=== PATIENT | female | born 1990 | race Caucasian/White ===

== ENCOUNTER 2016-06-02 04:30 | Inpatient (IN) | payer OTHER ==
[~2016-06-02] VITALS: Ht 160 cm; Wt 83.0 kg
[~2016-06-02 04:30] MED LIST: PRENATALS
[2016-06-02 09:30] VITALS: BP 110/63; RESP 20
[2016-06-02 10:05] VITALS: BP 110/63; PULSE 84; RESP 18; Ht 160 cm; Wt 83.0 kg
[2016-06-02] MEDS ORDERED: traMADol-APAP 37.5-325 1 TAB PO PRN (11:30)
[2016-06-02] MEDS ORDERED: BISACODYL (EC) 5 MG TAB PO PRN (13:00)
[2016-06-02] MEDS ORDERED: DOCUSATE SODIUM 100 MG CAP PO PRN (13:00)
[2016-06-02] MEDS ORDERED: ACETAMINOPHEN 650 MG SUPP PR PRN (13:00)
[2016-06-02] MEDS ORDERED: NACL 0.9% 3 ML SYG IV SCH (13:00)
[2016-06-02] MEDS ORDERED: ONDANSETRON 4 MG TAB PO PRN (13:00)
[2016-06-02] MEDS: D5W-0.45 NACL + KCL 20 MEQ 1,000 ML IV SCH ×2 (13:13→22:57)
[2016-06-02 13:58] LABS: HEMATOCRIT 31.5 % (37.0-47.0); HEMOGLOBIN 9.4 g/dl (12.0-16.0)
[2016-06-02] MEDS ORDERED: BARIUM SULF 2% 450 ML BTL (BERRY SMOOTHIE) PO ONE (14:00)
--- NOTE | 2016-06-02 14:49 | HP ---
DATE OF ADMISSION: 06/02/2016 PARKING ENFORCEMENT OFFICER: Marketing Research Analyst. CHIEF COMPLAINT: Generalized weakness and shortness of breath. HISTORY OF PRESENT ILLNESS: This is a 25-year-old female with past medical history of anemia and C- section and irregular menstruation, who was seen and evaluated at [facility] on 05/12 secondary to having generalized weakness and shortness of breath. The patient was diagnosed with anemia and blood transfusion was recommended, although she refused the transfusion and went inna e. On 06/01/2016, the patient returned to [facility] with the same symptoms and she was fo und to have urinary tract infection. Her hemoglobin was found to be 8.9, hematocrit 28.7. The pat ient was typed and screened and transfused 1 unit of packed red blood cell. The patient secondary t o insurance purposes was transferred to [facility] as per request of the insurance company, and patient was cleared as per medical standpoint by the ER physician to be transferred to [facility]. Upon arrival to [facility], the patient's temperature was 97.6, puls e 81, respirations 20, blood pressure 110/65, oxygen saturation 96%. The patient continued to compl ain of generalized weakness. She denies any headache, dizziness, lightheadedness. No change in vis ual acuity, diplopia, photophobia. No abdominal pain. No nausea or vomiting. No change in the col or of stool. No heavy menstrual bleeding. No dysuria, hematuria, urgency, incontinence. The patie nt also has been complaining of having a 40-pound weight loss in the last year and having decrease i n appetite. PAST MEDICAL/SURGICAL HISTORY: 1. Anemia. 2. . MEDICATIONS: Ferrous sulfate. SOCIAL HISTORY: Negative x3 for smoking, alcohol, illicit drugs. She lives with her fiance and 2 o f her kids. FAMILY HISTORY: No history of cancer, diabetes mellitus. REVIEW OF SYSTEMS: As above per HPI, otherwise 12 review of systems has been found to be negative. PHYSICAL EXAMINATION: VITAL SIGNS: Temperature 97.3, pulse 84, respirations 18, blood pressure 110/63, oxygen saturation 96% in room air. GENERAL APPEARANCE: The patient is lying in bed comfortably without any distress. She is awake, al ert, oriented. She is able to answer my questions properly. Body habitus is mildly overweight with BMI of 32.4. EYES AND ENT: Conjunctivae pale. Lids normal. Extraocular normal. Hearing normal. Oral mucosa m oist. NECK: Supple. Trachea is midline. No lymphadenopathy. RESPIRATORY: Effort is normal. Clear to auscultate bilaterally. CARDIOVASCULAR: Normal S1, S2. Regular rhythm and rate. No murmur, no bruits, no edema. Peripher al pulses and radial pulses palpable. Capillary refill is normal. CHEST: Normal expansion of thorax during inspiration. GASTROINTESTINAL: Abdomen is soft, nontender, not distended. Bowel sounds present. No guarding, n o rebound. GENITOURINARY: Deferred. MUSCULOSKELETAL: Upper and lower extremity normal, full range of motion. Strength 5/5 in both uppe r and lower extremities. NEUROLOGIC: Cranial nerves II through XII are grossly intact. PSYCHIATRIC: Normal judgment and insight. Alert and oriented x3. Mood and affect is normal. LABORATORY DATA: WBC 10.5, hemoglobin 7.3, hematocrit 24.1, MCV 57.7, MCH 17.3, RDW 17.9. PT 13, I NR 1.2, PTT 30. Glucose 106. Sodium 139, potassium 3.9, chloride 104, bicarbonate 27, BUN 10, crea tinine 0.64, glucose greater than 90, calcium 9.3, magnesium 2.1. LFTs all within normal limits. U rinalysis positive for large leukocyte esterase, WBC 5 to 10, bacteria Few. The patient was typed and crossed and transfused 2 units of packed red blood cells and her hemoglobi n increased to 8.9, hematocrit 28.7, MCV 65.1. ASSESSMENT AND PLAN 1. Microcytic anemia, source is unknown. We will obtain photocomposition keyboard operator. We will follow up [facility]. The patient has been typed and screened and transfused 2 units of packed red blood cells at [facility]. We will follow hemoglobin and hematocrit q.8h. x3. Follow up iron panel a nd treat accordingly. 2. Generalized weakness. This is likely secondary to #1. Place the patient on IV fluid. 3. Urinary tract infection. Place the patient on ciprofloxacin. 4. Weight loss. This could be secondary to patient post- and post-. We will obtain a CT abdomen and pelvis with IV contrast to rule out any mass. Gastroenterology has been consulted. 5. For deep venous thrombosis prophylaxis, on sequential compression devices. 6. For gastrointestinal prophylaxis, place the patient on proton pump inhibitor. 7. We will continue to monitor the patient closely. Further recommendations, management and treatm ent as per clinical course. Dictated By: KYM MORRIS MD PN/NTS Conf#: [id number] DID#: [id number]
[2016-06-02] MEDS: HYDROCODONE/APAP (5/325) TAB PO PRN (14:57)
[2016-06-02 18:05] LABS: CREATININE 0.59 mg/dl (0.44-1.00)
--- NOTE | 2016-06-02 19:48 | CONS ---
Date/Time of Note Date/Time of Note DATE: 06/02/16 TIME: 19:42 Assessment/Plan Assessment/Plan Additional Assessment/Plan Acute anemia Evaluate GI bleed versus chronic iron deficiency vs other etiology Stool OB, if positive strongly recommend EGD Monitor H&H every 8 hours, transfuse 2 units for hemoglobin less than 7.[address] abdomen Continue PPI twice daily EGD with Dr. Crane tomorrow, pt advised of R/B/A to procedure and provide informed consent to proceed Colonoscopy with Dr. Crane tomorrow, pt advised of R/B/A to procedure and provide informed consent to proceed Bowel Prep Unintentional weight loss Endoscopic evaluation tomorrow CT abdomen in process Irregular menstruation Length of menstruation up to 7 days Recommend METAL SPRAY OPERATOR evaluation Further recommendations depend on clinical course Patient seen in collaboration with Dr. Crane Consultation Date/Type/Reason Admit Date/Time Jun 02, 2016 at 09:46 Type of Consultation: Gastroenterology Reason for Consultation Weight loss and anemia Hx of Present Illness Ms.Esmeralda Starr is a 25-year-old female who was transferred to [facility] for further evaluation of anemia and weakness. Patient states she has been feeling very weak, tired, dizzy for several weeks. Patient reports menstrual cycle last up to 7 days. Patient denies abdominal pain, nausea, vomiting, fever, chills, sick contacts, travel outside the , previous episode. At bedside patient denies abdominal pain; however, she does report an unintentional 30 pound weight loss over the last 3 months and abdominal epigastric pain with eating. Patient denies family history of colon cancer. Patient denies previous endoscopic evaluation of complaints. At bedside patient consents to EGD and colonoscopy. Patient advised of risks/benefits/ alternatives to procedure and she provides informed consent to proceed. Social History Alcohol Use: rarely Smoking Status: Never smoker Exam/Review of Systems Vital Signs Vitals Vital Signs Date Time Temp Pulse Resp B/P Pulse Ox O2 Delivery O2 Flow Rate FiO2 06/02/16 10:05 Nasal Cannula 2.0 06/02/16 10:05 97.6 84 18 110/63 96 Exam Constitutional: alert, oriented, well developed Psych: nl mood/affect Head: normocephalic Eyes: EOMI, nl conjunctiva, nl lids ENMT: nl external ears & nose, nl lips & teeth, nl nasal mucosa & septum Respiratory: clear to auscultation, normal air movement Cardiovascular: regular rate and rhythm Gastrointestinal: soft, non-tender Musculoskeletal: nl extremities to inspection Neurological: RECREATIONAL DIRECTOR II-XII intact Results Result Diagram: 06/02/16 1340 06/02/16 1340 Results 24 hrs Laboratory Tests Test 06/02/16 13:40 06/02/16 14:45 Hemoglobin 9.4 L Hematocrit 31.5 L Blood Urea Nitrogen 8 Creatinine 0.59 Urine Test NEGATIVE Medications Medications Current Medications Potassium Chloride/Dextrose/ Sod Cl (D5-1/2ns + KCl 20 Meq) 1,000 ml @ 70 mls/ hr [id number] IV Last administered on 06/02/16 13:13; Admin Dose 70 MLS/HR; Start 06/02/16 at 13:00 Ondansetron HCl (Zofran Tab) 4 mg Q6H PRN PO NAUSEA AND/OR VOMITING; Start at 13:00 Acetaminophen (Tylenol Tab) 650 mg Q6H PRN PO PAIN LEVEL 1-3 OR FEVER; Start at 13:00 Acetaminophen (Tylenol Supp) 650 mg Q6H PRN [place] PAIN LEVEL 1-3 OR FEVER; Start 06/02/16 at 13:00 Acetaminophen/ Hydrocodone Bitart ([place] (5/325)) 1 tab Q6H PRN PO MODERATE PAIN LEVEL 4-6 Last administered on 06/02/16 14:57; Admin Dose 1 TAB; Start at 13:00 Docusate Sodium (Colace) 100 mg Q12H PRN PO CONSTIPATION; Start 06/02/16 at 13: 00 Bisacodyl (Dulcolax) 5 mg DAILY PRN PO CONSTIPATION; Start 06/02/16 at 13:00 Famotidine 20 mg 20 mg Q12 PO ; Start 06/02/16 at 21:00 Ciprofloxacin/ Dextrose (Cipro Ivpb) 200 ml @ 200 mls/hr Q12 IVPB ; Start 06/02 at 21:00 DELMY CHUA Jun 02, 2016 19:48
[2016-06-02 19:59] LABS: HEMATOCRIT 29.6 % (37.0-47.0); HEMOGLOBIN 8.7 g/dl (12.0-16.0)
[2016-06-02 20:05] VITALS: BP 115/75; RESP 20
[2016-06-02] MEDS: CIPROFLOXACIN 400MG/D5W 200 ML IVPB SCH (20:25)
[2016-06-02] MEDS: FAMOTIDINE 20 MG TAB PO SCH (20:28)
[2016-06-02] MEDS ORDERED: MAGNESIUM CITRATE 300 ML BTL PO ONE (21:00)
[2016-06-02] MEDS ORDERED: BISACODYL (EC) 5 MG TAB PO ONE (21:00)
[2016-06-02 22:11] VITALS: BP 108/70; PULSE 71; RESP 20
[2016-06-02] MEDS ORDERED: POLYETHYLENE GLYCOL 3350 119 GM POWDER PO ONE (23:00)
[2016-06-03] VITALS (11 sets, daily range): BP systolic 99–112; BP diastolic 54–68; PULSE 64–76; RESP 16–26
[2016-06-03 00:58] LABS: HEMATOCRIT 29.9 % (37.0-47.0); HEMOGLOBIN 8.7 g/dl (12.0-16.0)
[2016-06-03 04:56] LABS: ADD SCAN DIFF NO
[2016-06-03] MEDS ORDERED: BISACODYL (EC) 5 MG TAB PO ONE (05:00)
[2016-06-03] MEDS ORDERED: POLYETHYLENE GLYCOL 3350 119 GM POWDER PO ONE (05:00)
[2016-06-03 05:12] LABS: POTASSIUM 4.1 mmol/L (3.5-5.1)
[2016-06-03 05:15] LABS: CREATININE 0.64 mg/dl (0.44-1.00)
[2016-06-03 05:16] LABS: CALCIUM 9.2 mg/dl (8.4-10.2); MAGNESIUM 2.2 mg/dl (1.7-2.5)
[2016-06-03 05:25] LABS: ABNORMAL IP MESSAGE 1; HEMATOCRIT 31.1 % (37.0-47.0); MEAN CORPUSCULAR HGB CONC 28.9 g/dl (32.0-37.0); MEAN CORPUSCULAR VOLUME 69.1 fl (82.0-101.0); PLATELET COUNT 343 10^3/UL (140-415); RED CELL DISTRIBUTION WIDTH 24.2 % (11.5-14.5); WHITE BLOOD COUNT 8.3 10^3/ul (4.8-10.8)
[2016-06-03 05:29] LABS: IRON 23 ug/dl (35-150)
[2016-06-03 05:39] LABS: TOTAL IRON BINDING CAPACITY 435 ug/dl (241-421)
[2016-06-03 05:49] LABS: FERRITIN 8.5 ng/ml (6.2-137.0)
[2016-06-03] MEDS: FAMOTIDINE 20 MG TAB PO SCH ×2 (08:41→21:07)
[2016-06-03] MEDS: ACETAMINOPHEN 325 MG TAB PO PRN ×2 (08:41→22:28)
[2016-06-03] MEDS: CIPROFLOXACIN 400MG/D5W 200 ML IVPB SCH ×2 (08:41→21:09)
[2016-06-03] MEDS ORDERED: ONDANSETRON 4 MG INJ IV PRN (09:00)
[2016-06-03] MEDS ORDERED: IOHEXOL 300MG/ML 150 ML BTL ONE (10:05)
[2016-06-03 10:09] LABS: BASOPHIL # 0.1 10^3/ul (0.0-0.1); EOSINOPHILS # 0.2 10^3/ul (0.0-0.5); LYMPHOCYTES # 2.2 10^3/ul (0.8-2.9); MONOCYTE # 0.3 10^3/ul (0.3-0.9); NEUTROPHIL # 5.4 10^3/ul (1.6-7.5)
[2016-06-03 10:10] LABS: POLYCHROMASIA 1+; SPHEROCYTES 1+
--- NOTE | 2016-06-03 10:54 | PN ---
Date/Time of Note Date/Time of Note DATE: 06/03/16 TIME: 10:50 Assessment/Plan VTE Prophylaxis VTE Prophylaxis Intervention: SCD's Lines/Catheters IV Catheter Type (from [facility]): Peripheral IV Urinary Cath still in place: No Assessment/Plan Assessment/Plan Iron deficiency anemia, rule out GI bleeding UTI Iron saturation low Plan: GI on case plan for endoscopy will give IV iron x 5 days will follow up Subjective 24 Hr Interval Summary Free Text/Dictation Hb 8.7, S/p GI consult, plan for colonoscopy, getting CT abdomen Exam/Review of Systems Vital Signs Vitals Vital Signs Date Time Temp Pulse Resp B/P Pulse Ox O2 Delivery O2 Flow Rate FiO2 06/03/16 08:52 97.9 73 17 112/60 100 06/02/16 22:11 Nasal Cannula 06/02/16 20:20 2.0 Intake and Output 06/02/16 06/02/16 06/03/16 15:00 23:00 07:00 Intake Total 880 ml 2100 ml Output Total 900 ml 1850 ml Balance -20 ml 250 ml Exam alert,awake MUUL< EOMI supple, no JVD Clear BS S1 S2 RRR no murmur soft, NT no edema Results Result Diagram: 06/03/16 0436 06/03/16 0436 Results 24 hrs Laboratory Tests Test 06/02/16 13:40 06/02/16 14:45 06/02/16 19:18 06/03/16 00:50 Hemoglobin 9.4 L 8.7 L 8.7 L Hematocrit 31.5 L 29.6 L 29.9 L Blood Urea Nitrogen 8 Creatinine 0.59 Urine Test NEGATIVE Test 06/03/16 04:36 White Blood Count 8.3 Red Blood Count 4.50 Hemoglobin 9.0 L Hematocrit 31.1 L Mean Corpuscular Volume 69.1 L Mean Corpuscular Hemoglobin 20.0 L Mean Corpuscular Hemoglobin Concent 28.9 L Red Cell Distribution Width 24.2 H Platelet Count 343 Mean Platelet Volume Neutrophils % 65.0 Lymphocytes % 27.0 Monocytes % 4.0 Eosinophils % 3.0 Basophils % 1.0 Neutrophils # 5.4 Lymphocytes # 2.2 Monocytes # 0.3 Eosinophils # 0.2 Basophils # 0.1 Polychromasia 1+ Spherocytes 1+ Sodium Level 143 Potassium Level 4.1 Chloride Level 104 Carbon Dioxide Level 28 Anion Gap 15 Blood Urea Nitrogen 6 L Creatinine 0.64 Glucose Level 102 Calcium Level 9.2 Magnesium Level 2.2 Iron Level 23 L Total Iron Binding Capacity 435 H Percent Iron Saturation 5 L Ferritin 8.5 Medications Medications Current Medications Potassium Chloride/Dextrose/ Sod Cl (D5-1/2ns + KCl 20 Meq) 1,000 ml @ 70 mls/ hr [id number] IV Last administered on 06/02/16 22:57; Admin Dose 70 MLS/HR; Start 06/02/16 at 13:00 Acetaminophen (Tylenol Tab) 650 mg Q6H PRN PO PAIN LEVEL 1-3 OR FEVER Last administered on 06/03/16 08:41; Admin Dose 650 MG; Start 06/02/16 at 13:00 Acetaminophen (Tylenol Supp) [address] PAIN LEVEL 1-3 OR FEVER; Start 06/02/16 at 13:00 Acetaminophen/ Hydrocodone Bitart ([place] (5/325)) 1 tab Q6H PRN PO MODERATE PAIN LEVEL 4-6 Last administered on 06/02/16 14:57; Admin Dose 1 TAB; Start at 13:00 Docusate Sodium (Colace) 100 mg Q12H PRN PO CONSTIPATION; Start 06/02/16 at 13: 00 Bisacodyl (Dulcolax) 5 mg DAILY PRN PO CONSTIPATION; Start 06/02/16 at 13:00 Famotidine 20 mg 20 mg Q12 PO Last administered on 06/03/16 08:41; Admin Dose 20 MG; Start 06/02/16 at 21:00 Ciprofloxacin/ Dextrose (Cipro Ivpb) 200 ml @ 200 mls/hr Q12 IVPB Last administered on 06/03/16 08:41; Admin Dose 200 MLS/HR; Start 06/02/16 at 21:00 Ondansetron HCl (Zofran Inj) 4 mg Q4H PRN IV NAUSEA AND/OR VOMITING Last administered on 06/03/16 08:48; Admin Dose 4 MG; Start 06/03/16 at 09:00 YEIMI POND MD Jun 03, 2016 10:53
--- NOTE | 2016-06-03 11:29 | RADRPT ---
PROCEDURE: CT Abdomen and pelvis with contrast. CLINICAL INDICATION: abdominal pain TECHNIQUE: CT scan of the abdomen and pelvis with contrast was performed on a multidetector high-r esolution CT scan. The patient was scanned following the uncomplicated intravenous administration o f 100 ml Omnipaque-300. Coronal and sagittal reformatted images were obtained from the axial source images. Standard CT of the abdomen pelvis with contrast protocols were performed. The total exam CTDI equals 17.19 mGy and the total exam DLP equals 1048.24 mGy-cm. One or more of the following dose reduction techniques were used: - Automated exposure control. - Adjustment of the mA and/or kV according to patient size. Use of iterative reconstruction technique. COMPARISON: None. FINDINGS: The kidneys are normal in size without hydronephrosis or intra renal masses bilaterally. No calcifi ed urinary calculi. The inner bladder appears unremarkable. The uterus is retroverted endometrium device is present. There is central low density within uterus likely menstrual changes. No definite adnexal masses are demonstrated. The appendix is unremarkable. There are diffuse fluid filled loops of small and large bowel which a re not dilated and are otherwise unremarkable. There is fluid and air within the stomach which othe rwise appears unremarkable. There is trace free fluid in the right cul-de-sac and along the right uterus. No other abdominal or pelvic free fluid. No localized fluid collection to suggest abscess. Negative for free air. The liver spleen pancreas and adrenal glands are normal size configuration without focal lesions. T he gallbladder is unremarkable without evidence of biliary ductal dilation. The aorta and its branches are unremarkable. There is no evidence of ventral abdominal wall or ingu inal hernias. Minimal dependent lung atelectasis. Lung bases are otherwise unremarkable. There is right L5 spondylolysis defect. There is exaggerated lumbar lordosis. The osseous structures are o therwise unremarkable. IMPRESSION: 1. Trace fluid in the right cul-de-sac and along the right uterus. Negative for intra-abdominal ab scess or free air. 2. Diffuse fluid filled nondistended loops of small large bowel as well as fluid in the stomach. T his is nonspecific. A gastroenteritis cannot be excluded. 3. No evidence of calcified urinary calculi or obstructive uropathy. 4. Unremarkable appendix. RPTAT:AAJJ Teresa Willson, Physician Date Time Electronically viewed and signed by Teresa Willson Physician on 06/03/2016 11:28 /
[2016-06-03] MEDS: SOD FERRIC GLUC COMPLX 125 MG in SOD CHLORIDE 0.9% 100 ML IVPB SCH (13:34)
[2016-06-03] MEDS: HYDROCODONE/APAP (5/325) TAB PO PRN (13:40)
[2016-06-03] MEDS: D5W-0.45 NACL + KCL 20 MEQ 1,000 ML IV SCH ×2 (17:10→23:54)
[2016-06-03] MEDS ORDERED: PROPOFOL 20 ML ONE (17:42)
[2016-06-03] MEDS ORDERED: MIDAZOLAM 1 MG/ML 2 ML INJ ONE ×2 (17:42)
[2016-06-03] MEDS ORDERED: FENTAnyl 50 MCG/ML VIAL ONE (17:42)
[2016-06-04] MEDS: CIPROFLOXACIN 400MG/D5W 200 ML IVPB SCH ×2 (08:07→21:05)
[2016-06-04] MEDS: FAMOTIDINE 20 MG TAB PO SCH ×2 (08:07→21:05)
[2016-06-04 08:17] VITALS: BP 108/55; RESP 16
[2016-06-04] MEDS: HYDROCODONE/APAP (5/325) TAB PO PRN ×3 (09:26→23:54)
[2016-06-04] MEDS: SOD FERRIC GLUC COMPLX 125 MG in SOD CHLORIDE 0.9% 100 ML IVPB SCH (11:24)
--- NOTE | 2016-06-04 12:04 | PN ---
Date/Time of Note Date/Time of Note DATE: 06/04/16 TIME: 12:01 Assessment/Plan VTE Prophylaxis VTE Prophylaxis Intervention: SCD's Lines/Catheters IV Catheter Type (from Nrs): Peripheral IV Urinary Cath still in place: No Assessment/Plan Assessment/Plan Iron deficiency symptomatic anemia, severe iron deficiency,s/p EGD and colonoscopy yesterday UTI Iron saturation low Plan: s/p mild gastritis, Bx done, s/p Colonoscopy showed normal mucosa to caecum, moderate size internal hemorrhoids on IV abx for UTI will give IV iron x 5 days due to severe iron deficiency will follow up Subjective 24 Hr Interval Summary Free Text/Dictation s/p mild gastritis, Bx done, s/p Colonoscopy showed normal mucosa to caecum, moderate size internal hemorrhoids Exam/Review of Systems Vital Signs Vitals Vital Signs Date Time Temp Pulse Resp B/P Pulse Ox O2 Delivery O2 Flow Rate FiO2 06/04/16 08:17 97.6 73 16 108/55 100 06/03/16 19:16 Room Air 06/03/16 18:36 2.0 Intake and Output 06/03/16 06/03/16 06/04/16 15:00 23:00 07:00 Intake Total 200 ml 1250 ml 750 ml Balance 200 ml 1250 ml 750 ml Exam alert,awake MULU< EOMI supple, no JVD Clear BS S1 S2 RRR no murmur soft, NT no edema Results Result Diagram: 06/03/166 06/03/16 0436 Medications Medications Current Medications Potassium Chloride/Dextrose/ Sod Cl (D5-1/2ns + KCl 20 Meq) 1,000 ml @ 70 mls/ hr [id number] IV Last administered on 06/03/16 23:54; Admin Dose 70 MLS/HR; Start 06/02/16 at 13:00 Acetaminophen (Tylenol Tab) 650 mg Q6H PRN PO PAIN LEVEL 1-3 OR FEVER Last administered on 06/03/16 22:28; Admin Dose 650 MG; Start 06/02/16 at 13:00 Acetaminophen (Tylenol Supp) 650 mg Q6H PRN [place] PAIN LEVEL 1-3 OR FEVER; Start 06/02/16 at 13:00 Acetaminophen/ Hydrocodone Bitart ([place] (5/325)) 1 tab Q6H PRN PO MODERATE PAIN LEVEL 4-6 Last administered on 06/04/16 09:26; Admin Dose 1 TAB; Start at 13:00 Docusate Sodium (Colace) 100 mg Q12H PRN PO CONSTIPATION; Start 06/02/16 at 13: 00 Bisacodyl (Dulcolax) 5 mg DAILY PRN PO CONSTIPATION; Start 06/02/16 at 13:00 Famotidine 20 mg 20 mg Q12 PO Last administered on 06/04/16 08:07; Admin Dose 20 MG; Start 06/02/16 at 21:00 Ciprofloxacin/ Dextrose (Cipro Ivpb) 200 ml @ 200 mls/hr Q12 IVPB Last administered on 06/04/16 08:07; Admin Dose 200 MLS/HR; Start 06/02/16 at 21:00 Ondansetron HCl 4 mg 4 mg Q4H PRN IV NAUSEA AND/OR VOMITING Last administered on 06/03/16 08:48; Admin Dose 4 MG; Start 06/03/16 at 09:00 Ferric Sodium Gluconate Complex/ Sodium Chloride (Ferrlecit/NS) 110 ml @ 110 mls/hr Q24H IVPB Last administered on 06/04/16 11:24; Admin Dose 110 MLS/HR; Start 06/03/16 at 12:00; Stop 06/07/16 at 12:59 YEIMI POND MD Jun 04, 2016 12:04
--- NOTE | 2016-06-04 12:26 | PDOCDIS ---
Discharge Instructions CONDITION Patient Condition: Good HOME CARE INSTRUCTIONS: Special Diet: regular diet ACTIVITY: Activity Restrictions: Slowly Increase Activity Rest between Activity Avoid heavy lifting Avoid Heavy Housework FOLLOW UP/APPOINTMENTS Appointments follow up with her own PMD through HMO insurance in 1-2 week after discharge YEIMI POND MD Jun 04, 2016 12:26
[2016-06-04] MEDS ORDERED: FAMO20TA18 PO (12:27)
[2016-06-04] MEDS ORDERED: FER325 PO (12:27)
[2016-06-04] MEDS ORDERED: DOCU-144 PO (12:27)
--- NOTE | 2016-06-04 15:35 | CONS ---
Date/Time of Note Date/Time of Note DATE: 06/04/16 TIME: 15:34 Assessment/Plan Assessment/Plan Chief Complaint/Hosp Course Ms.Esmeralda Strar is a 25-year-old female who was transferred to [facility] for further evaluation of anemia and weakness. Patient states she has been feeling very weak, tired, dizzy for several weeks. Patient reports menstrual cycle last up to 7 days. Patient denies abdominal pain, nausea, vomiting, fever, chills, sick contacts, travel outside the , previous episode. At bedside patient denies abdominal pain; however, she does report an unintentional 30 pound weight loss over the last 3 months and abdominal epigastric pain with eating. Patient denies family history of colon cancer. Patient denies previous endoscopic evaluation of complaints. At bedside patient consents to EGD and colonoscopy. Patient advised of risks/benefits/ alternatives to procedure and she provides informed consent to proceed. Problems: Additional Assessment/Plan Acute anemia Evaluate GI bleed versus chronic iron deficiency vs other etiology Monitor H&H every 8 hours, transfuse 2 units for hemoglobin less than 7.[address] abdomen: 1. Trace fluid in the right cul-de-sac and along the right uterus. Negative for intra-abdominal abscess or free air. 2. Diffuse fluid filled nondistended loops of small large bowel as well as fluid in the stomach. This is nonspecific. A gastroenteritis cannot be excluded. 3. No evidence of calcified urinary calculi or obstructive uropathy. 4. Unremarkable appendix. Continue PPI twice daily EGD 06-03-16: 1. Normal mucosa to cecum 2. moderate size internal hemorrhoids Colonoscopy 06-03-16: 1. Mild gastritis. rule out H. pylori biopsies taken Unintentional weight loss Endoscopic evaluation tomorrow CT abdomen: 1. Trace fluid in the right cul-de-sac and along the right uterus. Negative for intra-abdominal abscess or free air. 2. Diffuse fluid filled nondistended loops of small large bowel as well as fluid in the stomach. This is nonspecific. A gastroenteritis cannot be excluded. 3. No evidence of calcified urinary calculi or obstructive uropathy. 4. Unremarkable appendix. Continue PPI twice daily Irregular menstruation Length of menstruation up to 7 days Recommend HARP REGULATOR evaluation Further recommendations depend on clinical course Patient seen in collaboration with Dr. Crane Consultation Date/Type/Reason Admit Date/Time Jun 02, 2016 at 09:46 Initial Consult Date Type of Consultation: Gastroenterology 24 HR Interval Summary Free Text/Dictation Tolerating diet Colonoscopy and EGD unremarkable for active bleeding Advised patient to continue iron supplementation Exam/Review of Systems Vital Signs Vitals Vital Signs Date Time Temp Pulse Resp B/P Pulse Ox O2 Delivery O2 Flow Rate FiO2 06/04/16 08:17 97.6 73 16 108/55 100 06/03/16 19:16 Room Air 06/03/16 18:36 2.0 Intake and Output 06/03/16 06/03/16 06/04/16 15:00 23:00 07:00 Intake Total 200 ml 1250 ml 750 ml Balance 200 ml 1250 ml 750 ml Exam Constitutional: alert, oriented, well developed Psych: nl mood/affect Head: normocephalic Eyes: EOMI, nl conjunctiva, nl lids ENMT: nl external ears & nose, nl lips & teeth, nl nasal mucosa & septum Respiratory: clear to auscultation, normal air movement Cardiovascular: regular rate and rhythm Gastrointestinal: soft, non-tender Musculoskeletal: nl extremities to inspection Neurological: CEMENT MIXER II-XII intact Results Result Diagram: 06/03/166 06/03/16 0436 Medications Medications Current Medications Acetaminophen (Tylenol Tab) 650 mg Q6H PRN PO PAIN LEVEL 1-3 OR FEVER Last administered on 06/03/16 22:28; Admin Dose 650 MG; Start 06/02/16 at 13:00 Acetaminophen (Tylenol Supp) 650 mg Q6H PRN [place] PAIN LEVEL 1-3 OR FEVER; Start 06/02/16 at 13:00 Acetaminophen/ Hydrocodone Bitart ([place] (5/325)) 1 tab Q6H PRN PO MODERATE PAIN LEVEL 4-6 Last administered on 06/04/16 09:26; Admin Dose 1 TAB; Start at 13:00 Docusate Sodium (Colace) 100 mg Q12H PRN PO CONSTIPATION; Start 06/02/16 at 13: 00 Bisacodyl (Dulcolax) 5 mg DAILY PRN PO CONSTIPATION; Start 06/02/16 at 13:00 Famotidine 20 mg 20 mg Q12 PO Last administered on 06/04/16 08:07; Admin Dose 20 MG; Start 06/02/16 at 21:00 Ciprofloxacin/ Dextrose (Cipro Ivpb) 200 ml @ 200 mls/hr Q12 IVPB Last administered on 06/04/16 08:07; Admin Dose 200 MLS/HR; Start 06/02/16 at 21:00 Ondansetron HCl 4 mg 4 mg Q4H PRN IV NAUSEA AND/OR VOMITING Last administered on 06/03/16 08:48; Admin Dose 4 MG; Start 06/03/16 at 09:00 Ferric Sodium Gluconate Complex/ Sodium Chloride (Ferrlecit/NS) 110 ml @ 110 mls/hr Q24H IVPB Last administered on 06/04/16 11:24; Admin Dose 110 MLS/HR; Start 06/03/16 at 12:00; Stop 06/07/16 at 12:59 DELMY CHUA Jun 04, 2016 15:35
[2016-06-04 20:06] VITALS: BP 111/70; RESP 17
[2016-06-05] MEDS: ACETAMINOPHEN 325 MG TAB PO PRN (08:21)
[2016-06-05] MEDS: FAMOTIDINE 20 MG TAB PO SCH (08:21)
[2016-06-05 08:42] VITALS: BP 98/52; RESP 16
[2016-06-05] MEDS: CIPROFLOXACIN 400MG/D5W 200 ML IVPB SCH (09:17)
[2016-06-05] MEDS: HYDROCODONE/APAP (5/325) TAB PO PRN (10:06)
--- NOTE | 2016-06-05 11:01 | PN ---
Date/Time of Note Date/Time of Note DATE: 06/05/16 TIME: 11:00 Assessment/Plan VTE Prophylaxis VTE Prophylaxis Intervention: SCD's Lines/Catheters IV Catheter Type (from Nrs): [place] [facility] Urinary Cath still in place: No Assessment/Plan Assessment/Plan Iron deficiency symptomatic anemia, severe iron deficiency,s/p EGD and colonoscopy yesterday UTI Iron saturation low Plan: s/p mild gastritis, Bx done, s/p Colonoscopy showed normal mucosa to caecum, moderate size internal hemorrhoids on IV abx for UTI will give IV iron x 5 days due to severe iron deficiency will follow up Subjective 24 Hr Interval Summary Free Text/Dictation Bp stable, afebrile, Exam/Review of Systems Vital Signs Vitals Vital Signs Date Time Temp Pulse Resp B/P Pulse Ox O2 Delivery O2 Flow Rate FiO2 06/05/16 08:42 97.4 65 16 98/52 99 06/03/16 19:16 Room Air 06/03/16 18:36 2.0 Intake and Output 06/04/16 06/04/16 06/05/16 15:00 23:00 07:00 Intake Total 660 ml 700 ml Output Total 400 ml Balance 660 ml 300 ml Exam alert,awake MULU< EOMI supple, no JVD Clear BS S1 S2 RRR no murmur soft, NT no edema Results Result Diagram: 06/03/16 0436 06/03/16 0436 Medications Medications Current Medications Acetaminophen (Tylenol Tab) 650 mg Q6H PRN PO PAIN LEVEL 1-3 OR FEVER Last administered on 06/05/16 08:21; Admin Dose 650 MG; Start 06/02/16 at 13:00 Acetaminophen (Tylenol Supp) 650 mg Q6H PRN [place] PAIN LEVEL 1-3 OR FEVER; Start 06/02/16 at 13:00 Acetaminophen/ Hydrocodone Bitart ([place] (5/325)) 1 tab Q6H PRN PO MODERATE PAIN LEVEL 4-6 Last administered on 06/05/16 10:06; Admin Dose 1 TAB; Start at 13:00 Docusate Sodium (Colace) 100 mg Q12H PRN PO CONSTIPATION; Start 06/02/16 at 13: 00 Bisacodyl (Dulcolax) 5 mg DAILY PRN PO CONSTIPATION; Start 06/02/16 at 13:00 Famotidine 20 mg 20 mg Q12 PO Last administered on 06/05/16 08:21; Admin Dose 20 MG; Start 06/02/16 at 21:00 Ciprofloxacin/ Dextrose (Cipro Ivpb) 200 ml @ 200 mls/hr Q12 IVPB Last administered on 06/05/16 09:17; Admin Dose 200 MLS/HR; Start 06/02/16 at 21:00 Ondansetron HCl 4 mg 4 mg Q4H PRN IV NAUSEA AND/OR VOMITING Last administered on 06/03/16 08:48; Admin Dose 4 MG; Start 06/03/16 at 09:00 Ferric Sodium Gluconate Complex/ Sodium Chloride (Ferrlecit/NS) 110 ml @ 110 mls/hr Q24H IVPB Last administered on 06/04/16 11:24; Admin Dose 110 MLS/HR; Start 06/03/16 at 12:00; Stop 06/07/16 at 12:59 YEIMI POND MD Jun 05, 2016 11:01
[2016-06-05] MEDS: SOD FERRIC GLUC COMPLX 125 MG in SOD CHLORIDE 0.9% 100 ML IVPB SCH (11:55)
--- NOTE | 2016-06-05 22:30 | DS ---
DATE OF ADMISSION: 06/02/2016 DATE OF DISCHARGE: 06/05/2016 FINAL DISCHARGE DIAGNOSES: 1. Iron deficiency, symptomatic severe anemia, status post esophagogastroduodenoscopy and colonosco py. 2. Urinary tract infection. 3. Severe iron deficiency with iron saturation low. CONSULTATIONS DONE DURING THIS HOSPITALIZATION: GI consult, Dr. Crane. PROCEDURES PERFORMED DURING THIS HOSPITALIZATION: The patient had EGD done which revealed mild quan ritis. Biopsy was done. The patient also had a colonoscopy done, which showed a normal mucosa to t he cecum, moderate size internal hemorrhoids. HOSPITAL COURSE: This is a 25-year-old female with a past medical history of anxiety, depression wh o presented with a complaint of generalized weakness, fatigue, and was complaining of shortness of b reath. She was noted to have severe iron deficiency anemia. She was admitted by hospitalist indy rivas. She was evaluated by GI, Dr. Crane, and had EGD done, which revealed mild gastritis and the bio psy was done to rule out Helicobacter pylori infection. The patient also had a colonoscopy done, wh ich revealed normal mucosa up to the cecum with a moderate size internal hemorrhoids. She tolerated the procedure very well. She was noted to have iron deficiency with iron saturation of 7. She was given IV iron x5 days while being in the hospital, and she was discharged home with p.o. prescripti on for ferrous sulfate. DISPOSITION: To home. DISCHARGE CONDITION: Stable and improved compared to admission. DISCHARGE ACTIVITIES: As tolerated, slowly resume to the normal baseline activity. DISCHARGE DIET: Regular diet. DISCHARGE MEDICATIONS: 1. She is given prescription of ferrous sulfate. 2. And Colace upon discharge. DISCHARGE FOLLOWUP PLANS AND INSTRUCTIONS: 1. The patient is to follow up with her own primary care doctor through her HMO insurance 1 to 2 we eks after discharge. 2. The patient is advised about the followup instructions. She understood and verbalized understan rodrigo. Dictated By: YEIMI POND MD, KP/NTS Conf#: [id number] DID#: [id number] CC: EARLINE AGUIRRE MD;*EndCC*
--- NOTE | 2016-06-07 04:03 | GILP ---
DATE OF PROCEDURE: PROCEDURE: Colonoscopy to see the cecum. PREMEDICATION: Monitored anesthesia care by anesthesiologist. SURGEON: Stephanie Crane MD. INSTRUMENT USED: Olympus colonoscope. PREPARATION: Adequate. TECHNIQUE: After informed consent, with the patient/relatives understanding the procedure, its indic ations potential risks and complications, including but not limited to: allergic reaction, bleeding, perforation, infection, missed lesions and after all pertinent questions were answered to the patie nt's satisfaction, the patient/relatives signed the witnessed informed consent. Following this, premedication was administered slowly IV push by under careful cardiovascular and re spiratory monitoring with pulse oximetry, automatic blood pressure and scout sniper. Once the sedativ e effect was achieved, the patient was placed in the left lateral decubitus position, digital rectal examination was performed. The colonoscope was then introduced and advanced under visual control th roughout all segments of the colon including: the rectum, sigmoid, descending colon, splenic flexure , transverse colon, hepatic flexure, ascending colon and finally reaching the cecum which was clearl y identified by transillumination, finger indentation and the ileocecal valve. Careful examination o f the mucosa of the lower gastrointestinal tract both on insertion as well as withdrawal of the inst rument disclosed the following findings: Rectal Examination: No evidence of perirectal disease, no masses. Colonic Mucosa: The colonic mucosa is entirely unremarkable throughout. The ileocecal valve was cl early identified and appears unremarkable. On withdrawal of instrument, no additional abnormalities were noted with the exception of moderate size internal hemorrhoids. The instrument was then withdrawn, the patient tolerated the procedure well and was transferred out of the Endoscopy Suite awake and in good condition to continue recovery under observation. IMPRESSION: 1. Normal colonic mucosa to cecum. 2. Moderate size internal hemorrhoids. PLAN: The patient will be continued on present regimen. Diet will be advanced as tolerated[facility] Dictated By: STEPHANIE CRANE MS/ASHLEIGH Conf#: [id number] DID#: [id number]
--- NOTE | 2016-06-07 04:05 | GILP ---
DATE OF PROCEDURE: 06/03/2016 PROCEDURE: Esophagogastroduodenoscopy with biopsies. BRIEF HISTORY AND INDICATIONS: The patient is being evaluated for unexplained anemia. PREMEDICATION: Monitored anesthesia care by anesthesiologist. SURGEON: Stephanie Crane MD. INSTRUMENT USED: Olympus panendoscope. TECHNIQUE: After informed consent, with the patient/relatives understanding the procedure, its indic ations, potential risks and complications, including but not limited to: allergic reaction, bleeding , perforation or infection, and after all pertinent questions were answered to the patients satisfac tion, the patient/relatives signed witnessed informed consent. Following this, premedication was administered slowly IV push under careful cardiovascular and respi ratory monitoring with pulse oximetry, automatic blood pressure and bus monitor. Once the sedative effect was achieved the patient was place in the left lateral decubitus, the panen doscope was introduced and advanced under visual control. Careful examination of the upper gastrointestinal tract, both on insertion as well as withdrawal of the instrument disclosed the following findings: ESOPHAGUS: The mucosa of the entire esophagus appears within normal limits. There is no evidence of esophagitis, varices, neoplasm or stricture. No hiatal hernia identified. STOMACH: Upon entrance to the stomach, air was insufflated, the gastric lehman distended normally. There is erythema and edema of the mucosa of a mild degree. Biopsies were obtained to rule out H. p ylori infection. PYLORUS: The pylorus appears patent and within normal limits, with no evidence of gastric outlet ob struction. DUODENUM: The duodenal mucosa was carefully examined in the duodenal bulb as well as the second por tion of the duodenum and appears unremarkable with no evidence of duodenitis, ulcer or neoplasm. The instrument was then withdrawn, the patient tolerated the procedure well and was transfer out of the endoscopy suite awake, and in good condition to continue recovery under observation IMPRESSION: Mild gastritis of questionable clinical significance, rule out Helicobacter pylori infe ction, biopsies obtained. PLAN: Pathology will be reviewed as soon as available. Dictated By: STEPHANIE CRANE MS/ASHLEIGH Conf#: [id number] DID#: [id number]
== END 2016-06-05 14:54 | disposition home or self-care (01) | DRG 812 ==
LOC: PP2 09:46
PROVIDERS: ADMIT Family Medicine; ATTEND Family Medicine
PROC: 0DJD8ZZ Inspection of Lower Intestinal Tract, Via Natural or Artificial Opening Endoscopic (ICD-10-PCS; principal; 2016-06-03 21:30)
PROC: 0DB68ZX Excision of Stomach, Via Natural or Artificial Opening Endoscopic, Diagnostic (ICD-10-PCS; 2016-06-03 21:30)
DX: D50.9 Iron deficiency anemia, unspecified (principal); N39.0 Urinary tract infection, site not specified; K29.70 Gastritis, unspecified, without bleeding; K64.8 Other hemorrhoids; R63.4 Abnormal weight loss; Z68.34 Body mass index [BMI] 34.0-34.9, adult; F41.9 Anxiety disorder, unspecified; F32.9 Major depressive disorder, single episode, unspecified
CPT/HCPCS: 74177; 80048; 82270; 82565; 82728; 83540; 83735; 84520; 84703; 85014; 85018; 85025; 88305; 88312; J0744; J2250; J2405; J2916; J3010; J3480; Q9967